=== PATIENT | female | born 1960 | race Caucasian/White ===

== ENCOUNTER 2016-11-25 08:14 | Day surgery (SDC) | payer OTHER ==
--- NOTE | ~2016-11-25 | EGD ---
EGD REPORT [facility] [address] [address] NAME: RITESH SANDERS : 58 STATUS : REG [facility]#: [id number] AGE: 56 ADM/REG DATE : 11/25/16 MR#: [id number] REPORT SERV DATE: 11/25/16 DICTATED BY: THEA MORRISON DATE: 11/25/16 REPORT STATUS : Draft [facility] DATE: 11/25/16 Endoscopy Center Patient Name: Ritesh Sanders Date of : 1960 Attending MD: THEA MORRISON MD Procedure Date No Time: 11/25/2016 Procedure: Colonoscopy Indications: Colon cancer screening in patient at increased risk: Family history of colon polyps Referring MD: JANIE STRATTON Medicines: Monitored Anesthesia Care Complications: No immediate complications. Procedure: Pre-Anesthesia Assessment: - ASA Grade Assessment: III - A patient with severe systemic disease. After I obtained informed consent, the scope was passed under direct vision. Throughout the procedure, the patient's blood pressure, pulse, and oxygen saturations were monitored continuously. The [facility] [id number] was introduced through the anus and advanced to the terminal ileum, with identification of the appendiceal orifice and IC valve. The colonoscopy was performed without difficulty. The patient tolerated the procedure well. The quality of the bowel preparation was adequate. Findings: The digital rectal exam was normal. Pertinent negatives include no palpable rectal lesions. Hemorrhoids were found during retroflexion and were mild. A sessile polyp was found in the rectum. The polyp was 7 mm in size. The polyp was removed with a cold snare. Resection and retrieval were complete. The terminal ileum appeared normal. Impression: - Hemorrhoids. - One 7 mm polyp in the rectum. Resected and retrieved. Recommendation: - Patient has a contact number available for emergencies. The signs and symptoms of potential delayed complications were discussed with the patient. Return to normal activities tomorrow. Written discharge instructions were provided to the patient. - Regular diet. - Continue present medications. - Await pathology results. EGD REPORT [address] [address] NAME: RITESH SANDERS : 58 STATUS : REG [facility] PAT#: [id number] AGE: 56 ADM/REG DATE : 11/25/16 MR#: [id number] REPORT SERV DATE: 11/25/16 DICTATED BY: THEA MORRISON DATE: 11/25/16 REPORT STATUS : Draft TRANSCRIBED BY: [employer] DATE: 11/25/16 - Repeat colonoscopy in 5 years for surveillance. - Return to GI clinic PRN. Procedure Code(s): --- Professional --- 73547, Colonoscopy, flexible, proximal to splenic flexure; with removal of tumor(s), polyp(s), or other lesion(s) by snare technique Diagnosis Code(s): --- Professional --- K64.9, Unspecified hemorrhoids K62.1, Rectal polyp Z12.11, Encounter for screening for malignant neoplasm of colon Z83.71, Family history of colonic polyps CPT copyright 2013 [employer]. All rights reserved. The codes documented in this report are preliminary and upon medical insurance coder review may be revised to meet current compliance requirements. THEA MORRISON MD 11/25/2016 10:34 AM This report has been signed electronically. Number of Addenda: 0 Note Initiated On: 11/25/2016 9:55 AM Scope Withdrawal Time 0 hours 7 minutes 33 seconds [address] [address]
--- NOTE | ~2016-11-25 | EGD ---
EGD REPORT [facility] [address] [address] NAME: RITESH SANDERS : 58 STATUS : REG [facility]#: [id number] AGE: 56 ADM/REG DATE : 11/25/16 MR#: [id number] REPORT SERV DATE: 11/25/16 DICTATED BY: THEA MORRISON DATE: 11/25/16 REPORT STATUS : Draft TRANSCRIBED BY: [facility] DATE: 11/25/16 Endoscopy Center Patient Name: Ritesh Sanders Date of : 1960 Attending MD: THEA MORRISON MD Procedure Date No Time: 11/25/2016 Procedure: Upper GI endoscopy Indications: Dysphagia, Suspected esophageal reflux Referring MD: JANIE STRATTON Medicines: Monitored Anesthesia Care Complications: No immediate complications. Procedure: Pre-Anesthesia Assessment: - ASA Grade Assessment: III - A patient with severe systemic disease. After obtaining informed consent, the endoscope was passed under direct vision. Throughout the procedure, the patient's blood pressure, pulse, and oxygen saturations were monitored continuously. The [facility] H190 [id number] was introduced through the mouth, and advanced to the second part of duodenum. The upper GI endoscopy was accomplished without difficulty. The patient tolerated the procedure well. Findings: No endoscopic abnormality was evident in the esophagus to explain the patient's complaint of dysphagia. It was decided, however, to proceed with dilation of the entire esophagus. A guidewire was placed and the scope was withdrawn. Dilation was performed with a Savary dilator with no resistance at 48 Fr. Estimated blood loss: none. The Z-line was irregular and was found at the gastroesophageal junction. Biopsies were taken with a cold forceps for histology. Patchy mild inflammation characterized by erythema was found in the gastric antrum. Biopsies were taken with a cold forceps for histology. The duodenal bulb and 2nd part of the duodenum were normal. The cardia and gastric fundus were normal on retroflexion. Impression: - No endoscopic esophageal abnormality to explain patient's dysphagia. Esophagus dilated. Dilated. - Z-line irregular, at the gastroesophageal junction. Biopsied. - Gastritis. Biopsied. - Normal duodenal bulb and 2nd part of the duodenum. Recommendation: - Patient has a contact number available for emergencies. The signs and symptoms of potential delayed EGD REPORT [address] [place]. [address] NAME: RITESH SANDERS : [birth year] STATUS : REG [facility]#: [id number] AGE: 56 ADM/REG DATE : 11/25/16 MR#: [id number] REPORT SERV DATE: 11/25/16 DICTATED BY: THEA MORRISON DATE: 11/25/16 REPORT STATUS : Draft TRANSCRIBED BY: [facility] DATE: 11/25/16 complications were discussed with the patient. Return to normal activities tomorrow. Written discharge instructions were provided to the patient. - Regular diet. - Continue present medications. - Await pathology results. Procedure Code(s): --- Professional --- 83247, Esophagogastroduodenoscopy, flexible, transoral; with insertion of guide wire followed by passage of dilator(s) through esophagus over guide wire 56519, Esophagogastroduodenoscopy, flexible, transoral; with biopsy, single or multiple Diagnosis Code(s): --- Professional --- R13.10, Dysphagia, unspecified K22.8, Other specified diseases of esophagus K29.70, Gastritis, unspecified, without bleeding CPT copyright 2013 [employer]. All rights reserved. The codes documented in this report are preliminary and upon paper sales representative review may be revised to meet current compliance requirements. THEA MORRISON MD 11/25/2016 10:20 AM This report has been signed electronically. Number of Addenda: 0 Note Initiated On: 11/25/2016 9:57 AM Scope Withdrawal Time 0 hours 0 minutes 0 seconds [address] [place] [address]
[~2016-11-25 08:14] MED LIST: ACET500CAP PO; AMIT25 PO; ASAB PO; BACLOFEN20 MG PO; BEN25 PO; CELEXA40 MG PO; CYMBALTA30 PO; FLONASE NAS; GLUCPH PO; MEVACOR PO; OXYCON10 PO; PROAIR HFA INH; PROTONIX20 MG PO; REQUIP5 MG PO; TOPAMAX200 MG PO; TRILEP300 PO; VENTOLIN HFA; ZESTRIL20 MG PO; ZOCOR20 PO; ZOL100; ZYRTEC ALLGY10 MG PO
[2016-12-02] MEDS ORDERED: SINGULAIR1 PO (11:15)
[2016-12-02] MEDS ORDERED: XYZAL5 MG PO (11:20)
[2016-12-02] MEDS ORDERED: L40 PO (11:20)
== END 2016-11-25 23:59 | disposition home or self-care (01) ==
LOC: DMU 08:14
PROVIDERS: Internal Medicine Gastroenterology
PROC: 0DB68ZX Excision of Stomach, Via Natural or Artificial Opening Endoscopic, Diagnostic (ICD-10-PCS; 2016-11-25)
PROC: 0DBP8ZZ Excision of Rectum, Via Natural or Artificial Opening Endoscopic (ICD-10-PCS; principal; 2016-11-25 10:00)
PROC: 0D758ZZ Dilation of Esophagus, Via Natural or Artificial Opening Endoscopic (ICD-10-PCS; 2016-11-25 10:00)
PROC: 0DB48ZX Excision of Esophagogastric Junction, Via Natural or Artificial Opening Endoscopic, Diagnostic (ICD-10-PCS; 2016-11-25 10:00)
DX: Z12.11 Encounter for screening for malignant neoplasm of colon (principal); D12.8 Benign neoplasm of rectum; K29.00 Acute gastritis without bleeding; K64.9 Unspecified hemorrhoids; K21.9 Gastro-esophageal reflux disease without esophagitis; I10 Essential (primary) hypertension; E11.9 Type 2 diabetes mellitus without complications; E66.9 Obesity, unspecified; E78.00 Pure hypercholesterolemia, unspecified; J45.909 Unspecified asthma, uncomplicated; G43.909 Migraine, unspecified, not intractable, without status migrainosus; M17.0 Bilateral primary osteoarthritis of knee; M41.9 Scoliosis, unspecified; M79.7 Fibromyalgia; F41.9 Anxiety disorder, unspecified; F32.9 Major depressive disorder, single episode, unspecified; Z83.71 Family history of colonic polyps; Z87.442 Personal history of urinary calculi; Z88.2 Allergy status to sulfonamides; Z88.8 Allergy status to other drugs, medicaments and biological substances; Z90.49 Acquired absence of other specified parts of digestive tract; Z90.710 Acquired absence of both cervix and uterus; Z79.84 Long term (current) use of oral hypoglycemic drugs; Z79.891 Long term (current) use of opiate analgesic; Z79.899 Other long term (current) drug therapy; Z98.890 Other specified postprocedural states
CPT/HCPCS: 82962; 88305; 88342

== ENCOUNTER 2016-12-09 07:09 | Inpatient (IN) | payer OTHER ==
[2016-12-02 14:12] LABS: HEMATOCRIT 36.6 % (36.0-48.0); HEMOGLOBIN 11.6 g/dL (12.0-16.0)
[2016-12-02 14:24] LABS: BUN (BLOOD UREA NITROGEN) 13 MG/DL (6-23); CALCIUM, SERUM 8.9 MG/DL (8.5-10.4); CHLORIDE, SERUM 107 MMOL/L (96-112); CO2 (CARBON DIOXIDE) 29 MMOL/L (24-34); CREATININE 0.78 MG/DL (0.55-1.02); GFR AFRICAN AMERICAN 98 ML/MIN (>=60); GFR NON AFRICAN AMERICAN 84 ML/MIN (>=60); GLUCOSE, SERUM 103 MG/DL (60-99); POTASSIUM, SERUM 4.7 MMOL/L (3.5-5.3); SODIUM, SERUM 144 MMOL/L (135-148)
[2016-12-02 14:50] LABS: ASCORBIC ACID (UR NOT ORDER) NEG (NEG); BILIRUBIN, URINE NEGATIVE (NEG); KETONE, URINE NEGATIVE (NEG); LEUKOCYTE ESTERASE(NOT OR TRACE (NEG); WBC (NOT ORDERED) (RFLEX) 8 (0-5)
--- NOTE | ~2016-12-09 | CN ---
Consultation Report [facility] [address] [place]. [address] NAME: RITESH SANDERS : 58 STATUS : ADM IN [facility]#: [id number] AGE: 56 ADM/REG DATE : 12/09/16 MR#: [id number] REPORT SERV DATE: 12/10/16 DICTATED BY: DINAH NAVA IV DATE: 12/09/16 REPORT STATUS : Draft TRANSCRIBED BY: ANGELITA DATE: 12/09/16 CRITICAL CARE CONSULT DATE OF CONSULTATION: 12/09/2016 REASON FOR REQUEST: Postoperative management of asthma, hypertension, and diabetes. History obtained from the records and from the patient. HISTORY OF PRESENT ILLNESS: Ms. Colton Rinaldi is a 56-year-old female with a history of hypertension, elevated cholesterol, diabetes mellitus, asthma, reflux disease, restless legs syndrome, chronic kidney disease, depression, probable obstructive sleep apnea, allergic rhinitis, and cervical spinal stenosis, who is status post cervical instrumentation and fusion from C3-T1, now in the ICU. The patient has had progressive problems with spinal stenosis prompting her surgical procedure. From a respiratory standpoint, she was at her baseline using her Advair inhaler twice a day and her Singulair at nighttime. She will use her ProAir inhaler 1 to 2 times a day for perceived symptoms. She has had pulmonary function studies over a year ago and is scheduled to see Dr. Franz next month to establish as her new epic cupid analyst. She has an occasional deep nonproductive cough. She has had no current wheezing or respiratory distress. There were no symptoms of an upper respiratory infection to include purulent sputum production, fevers, chills, sweats, or hemoptysis. The patient underwent her procedure today with a difficult intubation with some reported mild stridor postprocedure, although that has not persisted after transfer to the ICU. Oxygen saturations are currently adequate on 2 L nasal cannula. She is not on oxygen at home. The patient reportedly snores and has nonrestorative sleep. She underwent the first part of the sleep study; at which time, a formal CPAP evaluation was recommended, however, she has not yet performed that study. Pulmonary history is remarkable for no history of childhood asthma. She does carry the diagnosis of adult-onset asthma as well as previous pneumonia. She is a lifelong nonsmoker and had secondary smoke exposure from her and from her parents. She worked in [email or web address] without exposures to chemicals or solvents. She is not up to date on either seasonal influenza vaccine or pneumococcal vaccinations. PAST MEDICAL HISTORY: 1. Hypertension. 2. Elevated cholesterol. 3. Diabetes mellitus. 4. Asthma. 5. Reflux disease. 6. Restless legs. 7. Chronic kidney disease. Consultation Report [facility] [place] [address] [place]. [address] NAME: RITESH SANDERS : 58 STATUS : ADM IN PAT#: [id number] AGE: 56 ADM/REG DATE : 12/09/16 MR#: [id number] REPORT SERV DATE: 12/10/16 DICTATED BY: DINAH NAVA IV DATE: 12/09/16 REPORT STATUS : Draft TRANSCRIBED BY: ANGELITA DATE: 12/09/16 8. Depression. 9. Probable obstructive sleep apnea. 10.Allergic rhinitis. 11.Cervical spinal stenosis. PAST SURGICAL HISTORY: The patient had on two occasions, total abdominal hysterectomy, kidney stone removal, and cervical laminectomy in 2016. ALLERGIES: SHE IS INTOLERANT TO BENADRYL, REGLAN, RESTORIL, AND BACTRIM; ALL CAUSING HER TO HAVE AN OUT-OF-BODY EXPERIENCE. CURRENT MEDICATIONS: The patient is on Ancef 1 g q.8 hours, Colace 100 mg twice a day, Cymbalta 30 mg twice a day, Mevacor 20 mg daily, OxyContin 10 mg twice a day, Requip 5 mg at bedtime, Singulair 10 mg at bedtime, Trileptal 600 mg twice a day, Ventolin as needed, baclofen 20 mg three times a day, Benadryl as needed, Flonase 1 spray to each nostril p.r.n., Lasix p.r.n., Xyzal 5 mg p.r.n., and Zestril 20 mg daily. SOCIAL HISTORY: Remarkable for no tobacco, alcohol, or illicit drug use. She is and has two children. FAMILY HISTORY: Remarkable for mother with dementia, stroke, hypertension, and coronary artery disease. Father with diabetes, coronary artery disease, and prostate carcinoma. REVIEW OF SYSTEMS: Fourteen systems reviewed. Pertinent positives are as noted above. PHYSICAL EXAMINATION: GENERAL: This is an obese late middle-aged female appearing slightly older than her stated age in no current distress. VITAL SIGNS: Temperature is 98.6, pulse is 104, blood pressure is 151/79, saturation 96% on 2 L, and respiratory rate is 21. HEENT: The patient is normocephalic and atraumatic. Extraocular movements are intact. Pupils are react to light. Sclerae and conjunctivae normal. She has a Mallampati 4 airway with narrowing of the posterior pharyngeal space. She has a soft cervical collar that is not removed. CHEST: The patient has hypoventilatory efforts. There are no crackles, wheezes, or rhonchi noted. CARDIOVASCULAR: Jugular venous pulsations and carotid upstrokes cannot be examined. She has regular S1, S2 with no clear murmur or S3. Peripheral pulses are diminished. ABDOMEN: Obese, soft, and nontender. There are hypoactive bowel sounds. There is no palpable hepatosplenomegaly or mass. Surgical scars are noted. EXTREMITIES: Demonstrate no cyanosis, clubbing, edema, or palpable cords. She has JEANETTE hose and pneumatic compression stockings. She does have some ankle edema. There is no cyanosis, clubbing, or palpable cords. NEUROLOGIC: The patient is able to move all extremities. Strength is 5-/5 and sensation is Consultation Report [address] [place]. [address] NAME: RITESH SANDERS : 58 STATUS : ADM IN [facility]#: [id number] AGE: 56 ADM/REG DATE : 12/09/16 MR#: [id number] REPORT SERV DATE: 12/10/16 DICTATED BY: DINAH NAVA IV DATE: 12/09/16 REPORT STATUS : Draft TRANSCRIBED BY: ANGELITA DATE: 12/09/16 intact to light touch. LABORATORY DATA: Her preop labs demonstrated chemistry with sodium 144, potassium 4.7, chloride 107, bicarbonate 29, BUN 13, creatinine 0.78, glucose 103, calcium 8.9, hemoglobin 11.6, and hematocrit 36.6. ASSESSMENT AND PLAN: 1. Respiratory. The patient will resume her Dulera for her Advair 2 puffs twice a day, Ventolin and albuterol nebs can be given as needed for symptoms. She will remain on the Singulair at nighttime. Incentive spirometry, 10 breaths every hour awake. Oxygen will be provided as needed, maintain saturation in the 90% to 94% range. Chest x-ray will be obtained tomorrow. I did encourage the patient to obtain her outpatient sleep evaluation I assume when she recovered from her surgery with the adverse cardiopulmonary effects of untreated sleep apnea. 2. Cardiovascular. We will give her daily lisinopril and hydralazine as needed for elevated blood pressures. 3. Endocrinologic. Insulin sliding scale has been ordered. Thyroid functions will be obtained. 4. Neurologic. AQUACULTURE DIRECTOR for pain management, Requip for restless legs. 5. Renal. Electrolyte replacement protocol has been ordered. Labs will be obtained tomorrow to include magnesium and phosphate. 6. Hematologic. Pneumatic compression stockings for deep vein thrombosis prophylaxis. CBC will be obtained tomorrow. 7. Infectious Disease. Ancef per Surgery and merits of immunization therapy were reviewed with the patient. She will decide if she wishes to obtain a Pneumovax prior to discharge. 8. Gastrointestinal. Head of bed at 30 to 45 degrees. Protonix for GI prophylaxis. Thank you for consulting us. We will follow the patient with you. SHAYNE/ANGELITA Dinah Nava IV, M.D. / [id number] CC: Amanuel Sawyer,
--- NOTE | ~2016-12-09 | DS ---
Discharge Summary [place] [id number] [facility] [place]. [address] NAME: RITESH SANDERS : 58 STATUS : DIS IN PAT#: [id number] AGE: 56 ADM/REG DATE : 12/09/16 MR#: [id number] REPORT SERV DATE: 12/27/16 DICTATED BY: AMANUEL SAWYER DATE: 12/26/16 REPORT STATUS : Draft TRANSCRIBED BY: ANGELITA DATE: 12/26/16 Data Collection from hospitalization DISCHARGE DIAGNOSES: 1. Post-laminoplasty kyphosis. 2. Cervical disk disease and stenosis. 3. Cervical radiculopathy. 4. Cervical myelopathy. 5. Hypertension. 6. Anxiety. 7. Osteoarthritis. 8. Angina. 9. Depression. 10.Hypercholesterolemia. 11.Migraines. 12.Gastric reflux. 13.Asthma. 14.Sleep apnea. 15.Restless legs. 16.Diabetes. CONSULTATIONS: 1. Carl Nava M.D. 2. Dorina Donato. PROCEDURES: Stage I - removal of previously placed laminoplasty plate, C3 through C6; C3 through C7 posterior laminectomy and bilateral foraminotomies with decompression at C3 through C7 nerve roots; C3-T1 posterolateral fusion bilaterally; C3-T1 posterior segmental spinal instrumentation with lateral mass and pedicle screws from [employer]; local morselized allograft; allograft bone matrix; neuromonitoring; intraoperative O-arm CT scan with computer navigation. Stage II - anterior cervical diskectomy and fusion, C3-4, C4-5, C5-6, and C6-7; placement of [employer]onic PEEK interbody spacer, C3-4, C4-5, C5-6, and C6-7; use of allograft bone matrix; neuromonitoring; operative microscope; anterior cervical plate from [employer], C3 through C7, 12/09/2016. PATHOLOGY: Bone, soft tissue, and surgical hardware; cervical spine - bone and fibrocartilage with nonspecific degenerative changes; surgical hardware (see gross description). No infection or neoplasm. DISCHARGE MEDICATIONS: Baclofen 20 mg three times a day; Cymbalta 30 mg twice a day; Colace 100 mg twice a day; Zestril 20 mg daily; Mevacor 20 mg at bedtime; Singulair 10 mg at bedtime; Macrobid 100 mg twice a day; Trileptal 600 mg twice a day; Protonix 40 mg daily; MiraLAX powder one packet daily; Requip 5 mg at bedtime; OxyContin 10 mg every 12 hours; Tylenol 650 mg every four hours as needed orally or rectally; Mylanta 30 mL as needed; Fioricet one tablet every eight hours as needed; Dulcolax 15 mg as needed; Flonase nasal spray one spray nasally daily as needed; Lasix 40 mg as needed; Glucophage 500 mg twice a day; Xyzal 5 mg as needed; milk of magnesia 30 mL twice a day as needed; Percocet 5/325 one to two tablets every four hours as needed; ProAir two puffs via inhaler as needed; Ventolin Discharge Summary [address] [address] NAME: RITESH SANDERS : 58 STATUS : DIS IN PAT#: [id number] AGE: 56 ADM/REG DATE : 12/09/16 MR#: [id number] REPORT SERV DATE: 12/27/16 DICTATED BY: AMANUEL SAWYER DATE: 12/26/16 REPORT STATUS : Draft TRANSCRIBED BY: ANGELITA DATE: 12/26/16 as instructed twice a day; Benadryl 25 mg twice a day as needed; Neurontin 300 mg one tablet twice a day. CONDITION ON DISCHARGE: Stable. DISPOSITION: The patient was discharged to [facility] on a mechanical soft diet with activities as instructed. HOSPITAL COURSE: This is a 56-year-old female with intractable neck pain, bilateral upper extremity pain, and progressive signs of myelopathy. She had a previous posterior laminoplasty on 01/28/2016 at [place] and had progressive kyphotic deformity and worsening symptoms following that. After a discussion of the risks and benefits, she elected to undergo revision surgery at this point. She was admitted at this time for further evaluation and treatment. Upon admission, she was taken to the operating room where she underwent the above-mentioned procedure. She tolerated this well and there were no complications. Postoperatively, she was seen by Dr. Carl Nava regarding postoperative management of asthma, hypertension, and diabetes and has had a difficult intubation with reported mild stridor postprocedure, although that had not persisted after transfer to the ICU. Oxygen saturations were currently adequate on 2 L nasal cannula. She was not on oxygen at home. The patient reportedly snores and has nonrestorative sleep. She underwent the first part of the sleep study, at which time, a formal CPAP titration study was recommended; however, she has not had that study performed yet. She is a lifelong nonsmoker. Dulera and Advair were resumed. Ventolin and albuterol nebulizers would be given as needed for symptoms. She would remain on Singulair at bedtime. We encouraged her to use incentive spirometry. Oxygen would be provided as needed to maintain saturations in the 90% to 94% range. The patient was encouraged to complete her outpatient sleep evaluation when she had recovered from her surgery with the adverse cardiopulmonary effects of untreated sleep apnea. Daily lisinopril and hydralazine would be given as needed for elevated blood pressure. Sliding scale insulin was ordered. Thyroid functions were going to be obtained. AIR HAMMER STRIPPER was being used for pain management. Requip was started for restless legs. Electrolyte replacement protocol was ordered. Pneumatic compression stockings were placed for DVT prophylaxis. Ancef was continued. The patient was going to decide if she wanted to have a Pneumovax prior to discharge. The head of her bed would be kept elevated at 30-45 degrees. Protonix was going to be given for GI prophylaxis. On postop day 1, her pain was controlled. She was evaluated by Physical Therapy. Sliding scale insulin and Glucophage were continued. We were going to check her hemoglobin A1c. She was seen by Dorina Donato. The patient had had a difficult intubation and mild stridor post-procedure. She had been transferred to the floor earlier in the day. She had had nausea and vomiting all day. Level 2 sliding scale insulin continued. She was placed on a diabetic diet. IV fluids and antiemetics were continued. The patient does have chronic chest pain. This had been constant since surgery on the . She still had some nausea. She had little oral intake. She had no vomiting. She still complained of some midsternal chest pain, but this was improving. She had not rested well the previous evening. We encouraged her to mobilize. Metformin was on hold. Sliding scale insulin continued. Discharge Summary [address] [place]. [address] NAME: RITESH SANDERS : 58 STATUS : DIS IN PAT#: [id number] AGE: 56 ADM/REG DATE : 12/09/16 MR#: [id number] REPORT SERV DATE: 12/27/16 DICTATED BY: AMANUEL SAWYER DATE: 12/26/16 REPORT STATUS : Draft TRANSCRIBED BY: ANGELITA DATE: 12/26/16 On 12/12/2016, she was up sitting in a chair. She had no further vomiting. Her nausea had improved. Her appetite was still poor. We encouraged her to drink protein drinks. She had not had a bowel movement since prior to admission. Level 2 sliding scale insulin continued. Her metformin would be resumed at discharge. She was going to receive three doses of IV Decadron. Her diet was changed to mechanical soft. The next day, she said she was feeling better overall. She still had pain in both arms. She had much less nausea. She was tolerating oral intake. Her throat was less sore. Lisinopril was stopped. Olson catheter was removed on the . The patient said she burned her right arm on a heating pad the previous evening. The right forearm was read without blisters. She did complain of some face redness and itching. She states that she is allergic to Bactrim, Reglan, and IV Benadryl. She says she can take oral Benadryl without issue. Antibiotics were continued. She had been found to have a urinary tract infection. Over the next couple of days, she was ambulating in the halls. She said she was feeling better. She had a couple of bowel movements. She did have some right arm weakness. She was eating and drinking better. Discharge planning was performed. Potassium supplementation was given. On 12/16/2016, her pain was controlled. She said she felt like she was getting a cold. She really did not complain of shortness of breath. She did have a cough. Macrobid was stopped. Omnicef was started. Potassium supplementation continued. Discharge instructions were given. Due to her improved and stable condition, she was discharged to [facility] with the above-stated instructions. Information collected by: Maxine Teixeira I submit the above information as my discharge summary. LUCY/ANGELITA anuel Sawyer DO / [id number] CC: DO Jennie Mei M.D.
--- NOTE | ~2016-12-09 | PREOPHP ---
PreOp History and Physical [id number] [place]. [address] NAME: RITESH SANDERS : 58 STATUS : ADM IN PAT#: [id number] AGE: 56 ADM/REG DATE : 12/09/16 MR#: [id number] REPORT SERV DATE: 12/09/16 DICTATED BY: AMANUEL SAWYER DATE: 12/09/16 REPORT STATUS : Draft TRANSCRIBED BY: ANGELITA DATE: 12/09/16 CHIEF COMPLAINT: Neck pain. HISTORY OF PRESENT ILLNESS: The patient is a 56-year-old female with intractable neck pain, bilateral upper extremity pain, and progressive signs of myelopathy. She had a previous posterior laminoplasty on 01/28/[address] Treviño at [place] and had progressive kyphotic deformity and worsening symptoms following that. After discussion of risks and benefits, she elects to undergo revision surgery at this point. REVIEW OF SYSTEMS: She denies chest pain, shortness of breath, and bowel or bladder changes. ALLERGIES: BACTRIM, BENADRYL, AND REGLAN. HOME MEDICATIONS: Include Advair, baclofen, duloxetine, Lasix, levocarnitine, lisinopril, lovastatin, metformin, Singulair, oxcarbazepine, oxycodone, and ropinirole. FAMILY HISTORY: Noncontributory. PAST MEDICAL HISTORY: Includes anxiety, osteoarthritis, angina, hypertension, depression, high cholesterol, migraines, gastric reflux, asthma, and sleep apnea. PHYSICAL EXAMINATION: VITAL SIGNS: Height is 5 feet 2 inches. Weight 196 pounds. BMI 35.8. GENERAL: The patient is healthy appearing and in no acute distress at this time. PSYCHIATRIC: Alert and oriented x3. Normal mood and affect. Gait is somewhat unsteady. VASCULAR: No extremity swelling. SPINE: Head is held in flexed posture, difficulty with extension. HEART: Regular rate and rhythm. LUNGS: Clear to auscultation. ABDOMEN: Soft, nontender, and nondistended with good bowel sounds. BREASTS/RECTUM: Both deferred. NEUROLOGIC: Motor strength is 4 out of 5 for the left upper extremity biceps and triceps, 4+ out of 5 for the left wrist extensors, wrist flexors, and intrinsics. Remaining muscle strength is 5/5 bilaterally. IMAGING: I have reviewed CT scan and plain x-rays. 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 ASSESSMENT: Post-laminectomy kyphosis with intractable pain and progressive signs of myelopathy and upper extremity weakness. PLAN: The patient presents today for surgical intervention. Consent was obtained. Preop clearance obtained. All questions were answered, and she is ready to proceed with surgery. ROHIT/ANGELITA PreOp History and Physical [address] [address] NAME: RITESH SANDERS : 58 STATUS : ADM IN [facility]#: [id number] AGE: 56 ADM/REG DATE : 12/09/16 MR#: [id number] REPORT SERV DATE: 12/09/16 DICTATED BY: AMANUEL SAWYER DATE: 12/09/16 REPORT STATUS : Draft TRANSCRIBED BY: ANGELITA DATE: 12/09/16 anuel Sawyer DO / [id number] CC: DO JANIE Mei
--- NOTE | ~2016-12-09 | OP ---
Record Of Operation [address] [address] NAME: RITESH SANDERS : 58 STATUS : ADM IN PAT#: [id number] AGE: 56 ADM/REG DATE : 12/09/16 MR#: [id number] REPORT SERV DATE: 12/10/16 DICTATED BY: AMANUEL FRANCO DATE: 12/10/16 REPORT STATUS : Draft TRANSCRIBED BY: MODL DATE: 12/10/16 DATE OF PROCEDURE: 12/09/2016 PREOPERATIVE DIAGNOSES: 1. Post laminoplasty kyphosis. 2. Cervical disk disease and stenosis. 3. Cervical radiculopathy. 4. Cervical myelopathy. POSTOPERATIVE DIAGNOSES: 1. Post laminoplasty kyphosis. 2. Cervical disk disease and stenosis. 3. Cervical radiculopathy. 4. Cervical myelopathy. PROCEDURES: PROCEDURE STAGE #1: 1. Removal of previously placed laminoplasty plates, C3 through C6. 2. C3 through C7 posterior laminectomy and bilateral foraminotomies with decompression of the C3 through C7 nerve roots. 3. C3-T1 posterolateral fusion bilaterally. 4. C3-T1 posterior segmental spinal instrumentation with lateral mass and pedicle screws from [employer]. 5. Local morselized autograft. 6. Allograft bone matrix. 7. Neuromonitoring. 8. Intraoperative O-arm CT scan with computer navigation. PROCEDURE STAGE #2: 1. Anterior cervical diskectomy and fusion, C3-4, C4-5, C5-6, and C6-7. 2. Placement of [employer] PEEK interbody spacer, C3-4, C4-5, C5-6, and C6-7. 3. Use of allograft bone matrix. 4. Neuromonitoring. 5. Operative microscope. 6. Anterior cervical plate from [employer], C3 through C7. SURGEON: Amanuel Franco DO. ANESTHESIA: General. ESTIMATED BLOOD LOSS: 350 mL. COMPLICATIONS: None. INDICATIONS: The patient is a pleasant 56-year-old, who has had a previous laminoplasty at Record Of Operation [address] [address] NAME: RITESH SANDERS : 58 STATUS : ADM IN PAT#: [id number] AGE: 56 ADM/REG DATE : 12/09/16 MR#: [id number] REPORT SERV DATE: 12/10/16 DICTATED BY: JOANAMANUEL HORACIO DATE: 12/10/16 REPORT STATUS : Draft TRANSCRIBED BY: ANGELITA DATE: 12/10/16 an outside hospital and developed severe kyphotic deformity, intractable pain, weakness, and signs of myelopathy. After discussion of the risks and benefits, and progressive neurologic decline, she elected to proceed with surgical intervention. PROCEDURE IN DETAIL: I identified the patient in the holding area. Consent was obtained. Went to the operating room. Underwent general anesthesia with endotracheal intubation. Prepped and draped in the usual sterile fashion. Operative safety pause was performed, then we proceeded. A midline longitudinal incision was made posteriorly over the previous incision taken down to the fascial layer. Paraspinous muscle was subperiosteally elevated. Self-retaining retractors were placed. The previously placed laminoplasty plates at C3-C6 were identified. The screws were removed, and then the laminoplasty plates were carefully dissected off the bone and dura. O-arm registration frame was placed on the spinous process. O-arm was brought in for intraoperative CT scan. Under computer guidance, lateral mass and pedicle screws were placed bilaterally from C3 down to T1. O-arm was brought back in to verify good placement of instrumentation. A high-speed arturo was used to create a trough in the lamina, C3 through C7. Final cut through was made with a marlena tip arturo, and then the lamina was removed en bloc for bone graft. It was carefully dissected off the significant scar tissue from the previous surgery. At this point, the head was realigned to correct the kyphotic deformity into a more neutral posture. The rods were cut and contoured to appropriate shape and length, placed over the lateral mass and pedicle screws from C3-T1, set screws were placed and final tightened. A high-speed decorticating arturo was used to decorticate the remaining bony surfaces C3-T1 bilaterally. There was a short duration loss of motor potentials in the left upper extremity. The right side remained intact and the bilateral lower extremities remained intact. There were no SSEP changes. This resolved within approximately 2 minutes. The bony surfaces from C3-T1 were decorticated. Irrigation was performed. Hemostasis was achieved. Local morcellized autograft and allograft bone matrix were packed over the decorticated surfaces from C3-T1 bilaterally. Subfascial fascial drain was placed. Layered closure was performed. A gram of vancomycin powder was sprinkled over the surgical wound. Layered closure was performed. Sterile dressings were applied. The patient returned to supine position for the second stage of the surgery. The patient was re-prepped and draped in the usual sterile fashion. Operative safety pause was repeated. An oblique incision was made over the left side of the neck taken down through the platysma. Dissection carried out down to the anterior aspect of the spine. Longus colli elevated C3 through C7. Self-retaining retractors were placed. A [place] pin was placed and lateral fluoroscopic image was used to verify operative levels. Distraction was applied across the C3-C4 level. Operative microscope was brought in. A knife was used to perform an annulotomy. Free disk material was removed with the pituitary. Anterior osteophytes were removed with the Kerrison. Posterior osteophytes and uncinate processes were taken down with a marlena arturo. Foraminotomies were performed with a [place]. Endplates were prepared with curettes, rasp, and a cutting arturo. Trial spacers were implanted, then [employer] PEEK interbody spacer with allograft bone matrix placed at C3-C4. This was repeated at C4-5, C5-6, and C6-7. [place] pins were removed. Anterior cervical plate from [employer] was placed, C3 through C7. Screws were placed, final tightened. Locking mechanism was engaged. Final AP and lateral images were obtained. Irrigation was performed. Hemostasis was achieved. Subplatysmal drain was placed. Layered closure was performed. Sterile dressings were applied. The patient was taken to the recovery room in stable condition. Remained intubated at that point. Record Of Operation [facility] [address] [place]. [address] NAME: RITESH SANDERS : 58 STATUS : ADM IN PAT#: [id number] AGE: 56 ADM/REG DATE : 12/09/16 MR#: [id number] REPORT SERV DATE: 12/10/16 DICTATED BY: AMANUEL FRANCO DATE: 12/10/16 REPORT STATUS : Draft TRANSCRIBED BY: MODL DATE: 12/10/16 FINDINGS: A severe kyphotic deformity with both spinal cord and nerve root compression. ROHIT/ANGELITA anuel Franco DO / [id number] CC: DO Jennie Mei M.D.
[~2016-12-09 07:09] MED LIST changes: +L40 PO; +SINGULAIR1 PO; +XYZAL5 MG PO
[2016-12-10 04:21] LABS: BASOPHILS 0.1 %; BASOPHILS ABSOLUTE 0.01 10/3/uL (0.0-0.16); EOSINOPHILS 0 %; IMMATURE GRANULOCYTES 0.6 %; IMMATURE GRANULOCYTES ABSOLUTE 0.08 10/3/uL (0.0-0.11); LYMPHOCYTES 13.3 %; LYMPHOCYTES ABSOLUTE 1.82 10/3/uL (0.67-4.30); MEAN CORPUS HGB CONC 31.8 g/dL (32.0-36.0); MEAN PLATELET VOLUME 10.7 fL (9.2-13.0); MONOCYTES 5.4 %; MONOCYTES ABSOLUTE 0.74 10/3/uL (0.21-1.20); NEUTROPHILS 80.6 %; NEUTROPHILS ABSOLUTE 11.04 10/3/uL (2.02-8.40); PLATELET COUNT 232 10/3/uL (150-400); RBC DISTRIBUTION WIDTH 13.5 % (12.0-16.0); RED CELL COUNT 3.57 10/6/uL (4.0-5.6)
[2016-12-10 04:22] LABS: HEMATOCRIT 31.4 % (36.0-48.0); MANUAL DIFF NO %; WHITE BLOOD CELLS 13.7 10/3/uL (4.5-10.5)
[2016-12-10 04:44] LABS: ALBUMIN 2.7 G/DL (3.5-5.0); CHLORIDE, SERUM 107 MMOL/L (96-112); CO2 (CARBON DIOXIDE) 27 MMOL/L (24-34); CREATININE 0.55 MG/DL (0.55-1.02); FREE T4 0.77 NG/DL (0.76-1.46); GFR AFRICAN AMERICAN 121 ML/MIN (>=60); GFR NON AFRICAN AMERICAN 104 ML/MIN (>=60); PHOSPHORUS, SERUM 3.3 MG/DL (2.5-4.5); SODIUM, SERUM 143 MMOL/L (135-148)
[2016-12-10 04:48] LABS: BUN (BLOOD UREA NITROGEN) 9 MG/DL (6-23); GLUCOSE, SERUM 127 MG/DL (60-99); ULTRASENSITIVE TSH 0.591 MCIU/ML (0.358-3.740)
[2016-12-11 04:29] LABS: BASOPHILS 0.2 %; BASOPHILS ABSOLUTE 0.02 10/3/uL (0.0-0.16); EOSINOPHILS 1.6 %; EOSINOPHILS ABSOLUTE 0.16 10/3/uL (0.0-0.53); HEMATOCRIT 31.4 % (36.0-48.0); HEMOGLOBIN 9.9 g/dL (12.0-16.0); IMMATURE GRANULOCYTES 0.6 %; IMMATURE GRANULOCYTES ABSOLUTE 0.06 10/3/uL (0.0-0.11); LYMPHOCYTES 17.9 %; LYMPHOCYTES ABSOLUTE 1.77 10/3/uL (0.67-4.30); MEAN CORPUS HGB CONC 31.5 g/dL (32.0-36.0); MEAN CORPUSCULAR HEMOGLOB 28.4 pg (26.0-34.0); MEAN CORPUSCULAR VOLUME 90.2 fL (80-100); MEAN PLATELET VOLUME 10.7 fL (9.2-13.0); MONOCYTES 8.1 %; NEUTROPHILS 71.6 %; NEUTROPHILS ABSOLUTE 7.09 10/3/uL (2.02-8.40); PLATELET COUNT 204 10/3/uL (150-400); RBC DISTRIBUTION WIDTH 14.1 % (12.0-16.0); RED CELL COUNT 3.48 10/6/uL (4.0-5.6); WHITE BLOOD CELLS 9.9 10/3/uL (4.5-10.5)
[2016-12-11 04:30] LABS: MANUAL DIFF NO %
[2016-12-11 04:39] LABS: BUN (BLOOD UREA NITROGEN) 8 MG/DL (6-23); CALCIUM, SERUM 8.1 MG/DL (8.5-10.4); CHLORIDE, SERUM 105 MMOL/L (96-112); CO2 (CARBON DIOXIDE) 29 MMOL/L (24-34); CREATININE 0.64 MG/DL (0.55-1.02); GFR AFRICAN AMERICAN 115 ML/MIN (>=60); GFR NON AFRICAN AMERICAN 99 ML/MIN (>=60); GLUCOSE, SERUM 118 MG/DL (60-99); INTERNATIONAL NORMAL RATI 1.1 UNITS (-); POTASSIUM, SERUM 3.7 MMOL/L (3.5-5.3); PROTIME (NOT ORD) 13.9 SEC (12.0-14.5); SODIUM, SERUM 142 MMOL/L (135-148)
[2016-12-12 04:05] LABS: BASOPHILS 0.2 %; BASOPHILS ABSOLUTE 0.02 10/3/uL (0.0-0.16); EOSINOPHILS 3.9 %; EOSINOPHILS ABSOLUTE 0.34 10/3/uL (0.0-0.53); HEMATOCRIT 29.2 % (36.0-48.0); HEMOGLOBIN 9.2 g/dL (12.0-16.0); IMMATURE GRANULOCYTES 0.9 %; IMMATURE GRANULOCYTES ABSOLUTE 0.08 10/3/uL (0.0-0.11); LYMPHOCYTES 14.7 %; LYMPHOCYTES ABSOLUTE 1.28 10/3/uL (0.67-4.30); MEAN CORPUS HGB CONC 31.5 g/dL (32.0-36.0); MEAN CORPUSCULAR HEMOGLOB 28.2 pg (26.0-34.0); MEAN CORPUSCULAR VOLUME 89.6 fL (80-100); MEAN PLATELET VOLUME 10.5 fL (9.2-13.0); MONOCYTES 7.3 %; MONOCYTES ABSOLUTE 0.64 10/3/uL (0.21-1.20); NEUTROPHILS ABSOLUTE 6.35 10/3/uL (2.02-8.40); PLATELET COUNT 183 10/3/uL (150-400); RBC DISTRIBUTION WIDTH 13.7 % (12.0-16.0); RED CELL COUNT 3.26 10/6/uL (4.0-5.6); WHITE BLOOD CELLS 8.7 10/3/uL (4.5-10.5)
[2016-12-12 04:07] LABS: MANUAL DIFF NO %
[2016-12-12 04:22] LABS: BUN (BLOOD UREA NITROGEN) 7 MG/DL (6-23); CALCIUM, SERUM 8.2 MG/DL (8.5-10.4); CHLORIDE, SERUM 101 MMOL/L (96-112); CO2 (CARBON DIOXIDE) 31 MMOL/L (24-34); CREATININE 0.52 MG/DL (0.55-1.02); GFR AFRICAN AMERICAN 123 ML/MIN (>=60); GFR NON AFRICAN AMERICAN 106 ML/MIN (>=60); GLUCOSE, SERUM 121 MG/DL (60-99); POTASSIUM, SERUM 3.7 MMOL/L (3.5-5.3); SODIUM, SERUM 140 MMOL/L (135-148)
[2016-12-13 03:46] LABS: HEMATOCRIT 30.2 % (36.0-48.0); HEMOGLOBIN 9.6 g/dL (12.0-16.0); MEAN CORPUS HGB CONC 31.8 g/dL (32.0-36.0); MEAN CORPUSCULAR HEMOGLOB 28.2 pg (26.0-34.0); MEAN CORPUSCULAR VOLUME 88.8 fL (80-100); MEAN PLATELET VOLUME 10.9 fL (9.2-13.0); RBC DISTRIBUTION WIDTH 13.3 % (12.0-16.0); WHITE BLOOD CELLS 10.3 10/3/uL (4.5-10.5)
[2016-12-13 03:48] LABS: MANUAL DIFF YES %; PLATELET COUNT 270 10/3/uL (150-400)
[2016-12-13 04:00] LABS: CHLORIDE, SERUM 98 MMOL/L (96-112); CO2 (CARBON DIOXIDE) 34 MMOL/L (24-34); CREATININE 0.57 MG/DL (0.55-1.02); GFR AFRICAN AMERICAN 119 ML/MIN (>=60); GFR NON AFRICAN AMERICAN 103 ML/MIN (>=60); GLUCOSE, SERUM 132 MG/DL (60-99); SODIUM, SERUM 137 MMOL/L (135-148)
[2016-12-13 04:01] LABS: BUN (BLOOD UREA NITROGEN) 11 MG/DL (6-23)
[2016-12-13 04:12] LABS: BAND NEUTROPHILS 3 %; LYMPHOCYTES 11 %; LYMPHOCYTES ABSOLUTE (CALC) 1.13 10/3/uL (0.67-4.30); MONOCYTES 1 %; MYELOCYTES 1 %; NEUTROPHILS ABSOLUTE (CALC) 8.96 10/3/uL (2.02-8.40); PLATELET ESTIMATE ADQ (ADEQUATE); RBC MORPHOLOGY NORM (NORMAL); SEGMENTED NEUTROPHIL (0) 84 %; TOTAL NUCLEATED CELLS 100
[2016-12-14 04:48] LABS: BASOPHILS 0.1 %; BASOPHILS ABSOLUTE 0.01 10/3/uL (0.0-0.16); EOSINOPHILS 0.4 %; EOSINOPHILS ABSOLUTE 0.04 10/3/uL (0.0-0.53); HEMATOCRIT 31.4 % (36.0-48.0); HEMOGLOBIN 9.9 g/dL (12.0-16.0); IMMATURE GRANULOCYTES 1.3 %; IMMATURE GRANULOCYTES ABSOLUTE 0.13 10/3/uL (0.0-0.11); LYMPHOCYTES 20.9 %; LYMPHOCYTES ABSOLUTE 2.02 10/3/uL (0.67-4.30); MEAN CORPUS HGB CONC 31.5 g/dL (32.0-36.0); MEAN CORPUSCULAR HEMOGLOB 28.1 pg (26.0-34.0); MEAN CORPUSCULAR VOLUME 89.2 fL (80-100); MEAN PLATELET VOLUME 10.7 fL (9.2-13.0); MONOCYTES 3.7 %; MONOCYTES ABSOLUTE 0.36 10/3/uL (0.21-1.20); NEUTROPHILS 73.6 %; NEUTROPHILS ABSOLUTE 7.11 10/3/uL (2.02-8.40); PLATELET COUNT 309 10/3/uL (150-400); RBC DISTRIBUTION WIDTH 13.6 % (12.0-16.0); RED CELL COUNT 3.52 10/6/uL (4.0-5.6); WHITE BLOOD CELLS 9.7 10/3/uL (4.5-10.5)
[2016-12-14 04:52] LABS: MANUAL DIFF NO %
[2016-12-14 05:03] LABS: BUN (BLOOD UREA NITROGEN) 12 MG/DL (6-23); CALCIUM, SERUM 8.8 MG/DL (8.5-10.4); CHLORIDE, SERUM 101 MMOL/L (96-112); CO2 (CARBON DIOXIDE) 32 MMOL/L (24-34); CREATININE 0.64 MG/DL (0.55-1.02); GFR AFRICAN AMERICAN 115 ML/MIN (>=60); GFR NON AFRICAN AMERICAN 99 ML/MIN (>=60); GLUCOSE, SERUM 140 MG/DL (60-99); SODIUM, SERUM 140 MMOL/L (135-148)
[2016-12-14 14:00] LABS: ASCORBIC ACID (UR NOT ORDER) NEG (NEG); BILIRUBIN, URINE NEGATIVE (NEG); KETONE, URINE NEGATIVE (NEG); LEUKOCYTE ESTERASE(NOT OR MOD (NEG); WBC (NOT ORDERED) (RFLEX) 79 (0-5)
[2016-12-15 05:09] LABS: BASOPHILS 0.4 %; BASOPHILS ABSOLUTE 0.04 10/3/uL (0.0-0.16); EOSINOPHILS 5.5 %; EOSINOPHILS ABSOLUTE 0.55 10/3/uL (0.0-0.53); HEMATOCRIT 31.9 % (36.0-48.0); HEMOGLOBIN 9.8 g/dL (12.0-16.0); IMMATURE GRANULOCYTES 1.1 %; IMMATURE GRANULOCYTES ABSOLUTE 0.11 10/3/uL (0.0-0.11); LYMPHOCYTES ABSOLUTE 2.99 10/3/uL (0.67-4.30); MANUAL DIFF NO %; MEAN CORPUS HGB CONC 30.7 g/dL (32.0-36.0); MEAN CORPUSCULAR VOLUME 91.1 fL (80-100); MEAN PLATELET VOLUME 10.6 fL (9.2-13.0); MONOCYTES 7.4 %; MONOCYTES ABSOLUTE 0.74 10/3/uL (0.21-1.20); NEUTROPHILS 55.6 %; NEUTROPHILS ABSOLUTE 5.55 10/3/uL (2.02-8.40); PLATELET COUNT 294 10/3/uL (150-400); RBC DISTRIBUTION WIDTH 13.8 % (12.0-16.0)
[2016-12-15 05:28] LABS: CALCIUM, SERUM 8.6 MG/DL (8.5-10.4); CHLORIDE, SERUM 99 MMOL/L (96-112); CO2 (CARBON DIOXIDE) 32 MMOL/L (24-34); CREATININE 0.74 MG/DL (0.55-1.02); GFR AFRICAN AMERICAN 104 ML/MIN (>=60); GFR NON AFRICAN AMERICAN 90 ML/MIN (>=60); POTASSIUM, SERUM 3.5 MMOL/L (3.5-5.3); SODIUM, SERUM 140 MMOL/L (135-148)
[2016-12-15 05:31] LABS: BUN (BLOOD UREA NITROGEN) 16 MG/DL (6-23); GLUCOSE, SERUM 104 MG/DL (60-99)
== END 2016-12-16 16:30 | DRG 472 ==
LOC: SDC/OF 07:09 → MIC 20:41 → 3SO 12-10 14:59
PROVIDERS: Hospitalist; Internal Medicine Critical Care Medicine; Nurse Practitioner; Nurse Practitioner Acute Care; Orthopaedic Surgery
PROC: 0RG2071 Fusion of 2 or more Cervical Vertebral Joints with Autologous Tissue Substitute, Posterior Approach, Posterior Column, Open Approach (ICD-10-PCS; principal; 2016-12-09 10:15)
PROC: 0RG4071 Fusion of Cervicothoracic Vertebral Joint with Autologous Tissue Substitute, Posterior Approach, Posterior Column, Open Approach (ICD-10-PCS; 2016-12-09 10:15)
PROC: 4A11X4G Monitoring of Peripheral Nervous Electrical Activity, Intraoperative, External Approach (ICD-10-PCS; 2016-12-09 10:15)
DX: M96.3 Postlaminectomy kyphosis (principal); M50.01 Cervical disc disorder with myelopathy, high cervical region; I10 Essential (primary) hypertension; F32.9 Major depressive disorder, single episode, unspecified; E11.9 Type 2 diabetes mellitus without complications; K21.9 Gastro-esophageal reflux disease without esophagitis; M50.11 Cervical disc disorder with radiculopathy, high cervical region; E78.00 Pure hypercholesterolemia, unspecified; Z98.890 Other specified postprocedural states; Z88.8 Allergy status to other drugs, medicaments and biological substances; Z79.899 Other long term (current) drug therapy; Z79.84 Long term (current) use of oral hypoglycemic drugs; E87.6 Hypokalemia
CPT/HCPCS: 71010; 71020; 76000; 80048; 80069; 81001; 82962; 83036; 83735; 84439; 84443; 85014; 85018; 85025; 85610; 87077; 87086; 87186; 87641; 88300; 88304; 88311; 93005; 94640; 97110-GO; 97110-GP; 97116-GP; 97163-GP; 97166-GO; A9270-GY; C1713; C1776; J0330; J0360; J0690; J1170; J1644; J2250; J2270; J2370; J2405; J2550; J3010; J3370; J3475